=== PATIENT | female | born 1990 | race Caucasian/White ===

== ENCOUNTER 2016-06-03 17:38 | Emergency (ER) | payer OTHER ==
[~2016-06-03] VITALS: Ht 170.2 cm; Wt 111.9 kg
[2016-06-03 18:28] LABS: HEMATOCRIT 38.2 % (36.0-46.0); MCH 30.6 PG (29.0-34.0); MCHC 32.7 G/DL (30.0-36.0); MCV 93.4 FL (83-99); MEAN PLAT.VOLUME 10.6 uM^3 (9.5-12.4); PLATELET COUNT 290 K/uL (156-360); RBC DIS.WIDTH-CV 12.7 % (11.8-14.6); RBC DIS.WIDTH-SD 42.1 % (39-53); RED BLOOD COUNT 4.09 M/uL (3.80-5.20); WHITE BLOOD COUNT 6.9 K/uL (4.1-10.2)
[2016-06-03 18:38] LABS: CHLORIDE 108 mEq/L (99-109); POTASSIUM 3.9 mEq/L (3.7-5.4); SODIUM 141 mEq/L (136-147)
[2016-06-03 18:40] LABS: GLUCOSE 96 mg/dL (70-99)
[2016-06-03 18:41] LABS: ANION GAP 8 MEQ/L (2-14)
[2016-06-03 18:44] LABS: GFR ESTIMATE (CALCULATED) > 59 mL/min/
[2016-06-03 18:45] LABS: UREA NITROGEN (BUN) 8 mg/dL (9-23)
[2016-06-03 18:52] LABS: QUANTITATIVE HCG < 4.0 MIU/ML
[2016-06-03] MEDS ORDERED: FIORICET 50-301 EACH PO (20:26)
[2016-06-03] MEDS ORDERED: REGLAN10 MG PO (20:26)
[2016-06-03 22:29] VITALS: BP 125/75
== END 2016-06-03 22:33 | disposition home or self-care (01) ==
LOC: EME 17:38
PROVIDERS: Physician Assistant
DX: R51 Headache (principal)
CPT/HCPCS: 80048; 84702; 85027; 99281; 99285; J1100; J1200; J2765; J7040